=== PATIENT | male | born 1995 | race Caucasian/White ===

== ENCOUNTER 2017-10-29 16:54 | Emergency (ER) | payer BC, OTHER ==
[2017-10-29] MEDS ORDERED: Sodium Chloride 0.9% 10 ML Syringe FLUSH PRN (17:13)
[2017-10-29] MEDS ORDERED: Iopamidol 612 MG/ML 100 ML Bottle IVPUSH ONE (17:13)
--- NOTE | 2017-10-29 17:14 | EDM.PDOC ---
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 He states that he landed primarily on his right wrist, but also struck his head, although he remembers the entire event, and did not lose consciousness. He complains of pain primarily to his right wrist, but also to his right anterior superior iliac crest. He has a laceration above his right eyebrow, and a bump to the back of his head. He states that he also hyperextended his left third finger, but that it is not bothering him. He denies chest pain or dyspnea. He denies abdominal pain. The patient's last tetanus vaccination was around 2011. The patient does not have a PCP. Treatments [employer]: Reports: Splint(s) Right Hip Pain Score (Numeric/FACES): 1 Right Wrist Pain Score (Numeric/FACES): 5 - Related Data Allergies Allergy/AdvReac Type Severity Reaction Status Date / Time No Known Allergies Allergy Verified 10/29/17 18:42 Home Meds: Home Meds Acetaminophen/HYDROcodone [[place] 325-5 MG] 1 - 2 tab PO Q6H PRN #10 tablet 10/29 [Rx] Past Medical History - Past Health History Medical/Surgical History: Denies Medical/Surgical History Social & Family History - Tobacco Use Smoking Status *Q: Current Some Day Smoker - Alcohol Use Alcohol Use History: Yes Alcohol Use Frequency: Socially - Recreational Drug Use Recreational Drug Use: No - Living Situation & Occupation Living situation: Reports: Single, with Family Occupation: Employed ([employer]) Review of Systems - Review of Systems Review Of Systems: ROS reveals no pertinent complaints other than HPI. ED EXAM, GENERAL - Physical Exam Exam: See Below Exam Limited By: No Limitations General Appearance: Alert, WD/WN, No Apparent Distress Eye Exam: Bilateral Eye: EOMI, Normal Inspection, PERRL Ears: Normal External Exam, Normal Canal, Hearing Grossly Normal, Normal TMs Nose: Normal Inspection, Normal Mucosa, No Blood Throat/Mouth: Normal Inspection, Normal Lips, Normal Teeth, Normal Gums, Normal Oropharynx, Normal Voice, No Airway Compromise Head: Normocephalic, Other (2.0 linear laceration superior to the lateral aspect of the patient's right eyebrow. Mild to moderate associated swelling. There is a firm bump to the right occiput, which is mildly tender.) Neck: Normal Inspection, Supple, Non-Tender, Full Range of Motion Respiratory/Chest: No Respiratory Distress, Lungs Clear, Normal Breath Sounds, No Accessory Muscle Use, Chest Non-Tender Cardiovascular: Normal Peripheral Pulses, Regular Rate, Rhythm, No Edema, No Gallop, No JVD, No Murmur, No Rub Peripheral Pulses: 4+: Radial (L), Radial (R) GI/Abdominal: Normal Bowel Sounds, Soft, No Organomegaly, No Distention, No Abnormal Bruit, No Mass, Tender (Right lower quadrant only. The patient states that this is really his right anterior superior iliac crest, although he appears to be tender independent of that.) (Male) Exam: Deferred Rectal (Males) Exam: Deferred Back Exam: Normal Inspection, Full Range of Motion, NT Extremities: Normal Inspection, Normal Range of Motion, No Pedal Edema, Normal Capillary Refill, Other (Tenderness to the right anterior superior iliac crest. Mild abrasion to this area. Pelvis is stable. No tenderness to palpation of either lower extremity. There is tenderness to palpation over the distal right radius. Pain is not induced by compressing the mid radius and ulna. Pain is induced with passive lateral range of motion at the right wrist, but not with flexion/extension. Neurovascular status of the right upper extremity is intact.) Neurological: Alert, Oriented, CN II-XII Intact, Normal Cognition, No Motor/ Sensory Deficits Psychiatric: Normal Affect Skin Exam: Warm, Dry, Intact, Normal Color, No Rash ED TRAUMA PROCEDURES - Laceration/Wound Repair Right Face Lac/Wound Length In cm: 2.0 Appearance: Subcutaneous, Linear, Clean Anesthetic Type: Local Local Anesthesia - Lidocaine (Xylocaine): 1% with EPI (50:50 admixture) Local Anesthesia - Bupivicaine (Marcaine): 0.5% Plain (50:50 admixture) Local Anesthetic Volume: 2cc Skin Prep: Providone-Iodine (Betadine) Exploration/Debridement/Repair: Wound Explored, In a Bloodless Field, Explored to Base, No Foreign Material Found, Wound Margins Revised Closed With: Sutures Suture Size: 3-0 # of Sutures: 5 Suture Type: Nylon (Ethlon), Interrupted, Simple Sterile Dressing Applied: Nurse Tetanus Status Addressed: Yes Complications: No - Splinting Right Upper Extremity Pre-Procedure NV Status: Normal Post-Procedure NV Status: Normal Splint Material: Fiberglass Splint Design: Gutter Applied & Form Fitted By: Provider Provider Post-Splint Application NV Check: NV Status Normal, Good Position Complications: No Course - Vital Signs Last Recorded V/S: Last Vital Signs Temp 37.3 C 10/29/17 17:01 Pulse 80 10/29/17 17:01 Resp 18 10/29/17 17:01 BP 124/71 10/29/17 17:01 Pulse Ox 99 10/29/17 17:01 - Orders/Labs/Meds Orders: Active Orders 24 hr Category Date Time Status Abdomen Pelvis w Cont [CT] Stat Exams 10/29/17 17:28 Taken Wrist Comp Min 3V Rt [CR] Stat Exams 10/29/17 17:10 Taken Sodium Chloride 0.9% [Normal Saline] 1,000 ml Med 10/29/17 17:15 Active IV ASDIRECTED Sodium Chloride 0.9% [Saline Flush] Med 10/29/17 17:13 Active 10 ml FLUSH ONETIME PRN Medication Orders Sodium Chloride (Normal Saline) 1,000 mls @ 150 mls/hr IV ASDIRECTED MARISELA Last Admin: 10/29/17 17:41 Dose: 150 mls/hr Sodium Chloride (Saline Flush) 10 ml FLUSH ONETIME PRN PRN Reason: IV FLUSH Last Admin: 10/29/17 17:33 Dose: 10 ml Labs: Laboratory Tests 10/29/17 10/29/17 Range/Units 17:14 17:14 WBC 10.44 H (4.23-9.07) K/mm3 RBC 4.72 (4.63-6.08) M/mm3 Hgb 13.5 L (13.7-17.5) gm/L Hct 40.0 L (40.1-51.0) % MCV 84.7 (79.0-92.2) fl MCH 28.6 (25.7-32.2) pg MCHC 33.8 (32.2-35.5) g/dl RDW Std Deviation 39.4 (35.1-43.9) fL Plt Count 250 (163-337) K/mm3 MPV 10.1 (9.4-12.3) fl Neutrophils % (Manual) 68 H (40-60) % Band Neutrophils % 0 (0-10) % Lymphocytes % (Manual) 18 L (20-40) % Atypical Lymphs % 0 % Monocytes % (Manual) 12 H (2-10) % Eosinophils % (Manual) 1 (0.8-7.0) % Basophils % (Manual) 0 L (0.2-1.2) Myelocytes % 1 Platelet Estimate Adequate Plt Morphology Comment Normal RBC Morph Comment Normal Sodium 139 (136-145) mEq/L Potassium 3.4 L (3.5-5.1) mEq/L Chloride 104 (98-107) mEq/L Carbon Dioxide 24 (21-32) mEq/L Anion Gap 14.4 (5-15) BUN 20 H (7-18) mg/dL Creatinine 1.0 (0.7-1.3) mg/dL Est Cr Clr Drug Dosing 114.34 mL/min Estimated GFR (MDRD) > 60 (>60) mL/min BUN/Creatinine Ratio 20.0 H (14-18) Glucose 99 (74-106) mg/dL Calcium 8.7 (8.5-10.1) mg/dL Total Bilirubin 0.4 (0.2-1.0) mg/dL AST 64 H (15-37) U/L ALT 59 (16-63) U/L Alkaline Phosphatase 120 H (46-116) U/L Total Protein 7.2 (6.4-8.2) g/dl Albumin 4.2 (3.4-5.0) g/dl Globulin 3.0 gm/dL Albumin/Globulin Ratio 1.4 (1-2) Meds: Medications Generic Name Dose Route Start Last Admin Trade Name Freq PRN Reason Stop Dose Admin Sodium Chloride 1,000 mls @ 150 mls/hr 10/29/17 17:15 10/29/17 17:41 Normal Saline IV 150 mls/hr ASDIRECTED MARISELA Administration Sodium Chloride 10 ml 10/29/17 17:13 10/29/17 17:33 Saline Flush FLUSH 10 ml ONETIME PRN Administration IV FLUSH Discontinued Medications Generic Name Dose Route Start Last Admin Trade Name Matilde PRN Reason Stop Dose Admin Hydrocodone Bitart/Acetaminophen 2 tab 10/29/17 18:50 10/29/17 19:05 [place] 325-5 Mg PO 10/29/17 18:51 2 tab ONETIME ONE Administration Bupivacaine HCl 10 ml 10/29/17 18:27 10/29/17 18:37 Sensorcaine-Mpf 0.5% INJECT 10/29/17 18:28 10 ml ONETIME ONE Administration Iopamidol 100 ml 10/29/17 17:13 10/29/17 17:33 Isovue-300 (61%) IVPUSH 10/29/17 17:14 100 ml ONETIME ONE Administration Lidocaine/Epinephrine 20 ml 10/29/17 18:27 10/29/17 18:36 Xylocaine 1% With Epinephrine 1:100,000 INJECT 10/29/17 18:28 20 ml ONETIME ONE Administration - Re-Assessments/Exams Free Text/Narrative Re-Assessment/Exam: 10/29/17 17:12 There is a 2 cm laceration superior to the lateral aspect of the patient's right eyebrow that will require suturing. There is a bump in the back of the patient's head that is slightly tender, but there was no loss of consciousness, and the patient is neurologically intact without a headache, therefore CT scan of the head is not indicated. The patient's right wrist is tender to movement, without visible abnormality. I have ordered a x-ray of the right wrist. The patient has tenderness not only to his right anterior superior iliac crest, but to the right lower quadrant of his abdomen, as well, therefore I have ordered a CT scan of his abdomen and pelvis with IV contrast. I ordered a CBC and CMP. I have ordered IV fluid. I offered pain medication, but the patient declined. 10/29/17 17:27 4-view radiographs of the right wrist appear to demonstrate a subtle fracture off the distal aspect of the right radius, by the growth plate. Formal read per the Radiologist pending. 10/29/17 17:57 CT of the abdomen and pelvis with IV contrast is read by [facility] as "No abdominal injuries. Additional findings as above." 10/29/17 18:27 I spoke to the patient's right upper extremity with a gutter splint extending from the MCPs to just above the elbow, in a thumbs up position with the elbow at 90. 10/29/17 18:49 The laceration above the patient's right eyebrow was sutured with 5 simple interrupted sutures, using 3-0 Ethilon. The patient tolerated the procedure well. The patient will be given 2 tablets of [place] here in the ED, primarily for pain to his right pelvis, not his right wrist, then be discharged home with a prescription for 10 tablets of [place], that he can take along with ibuprofen. I will refer him to Dr. Hernandez, although his supervisors indicating that he will need to follow-up with an Orthopedic Surgeon of their choosing. The sutures should be ready for removal by 11/06/2017, about the same time that he will be seeing the orthopedic surgeon, therefore the patient plans to ask them if they can remove the sutures. Departure - Departure Time of Disposition: 18:51 Disposition: Home, Self-Care 01 Condition: Good Clinical Impression: Distal radius fracture, right, Laceration of face, Contusion of pelvis - Discharge Information Prescriptions: Acetaminophen/HYDROcodone [[place] 325-5 MG] 1 - 2 tab PO Q6H PRN #10 tablet PRN Reason: Pain (Severe 7-10) Instructions: Laceration Care, Adult, Contusion, [id number] Referrals: PCP,None [Primary Care Provider] - Yaniv Hernandez MD [Physician] - Forms: ED Department Discharge, ED Return to Work/School Form Additional Instructions: You were seen in the emergency room after falling about 18 feet, through a rig floor, cutting your face, injuring your right wrist, and injuring your right pelvis. Workup in the ER included blood work, an x-ray of your right wrist, and a CT scan of your abdomen and pelvis. The CT scan of your abdomen and pelvis was unremarkable, however, the x-ray of your right wrist show that you have a fracture to your distal radius. Your right arm has been placed into a splint. The splint cannot get wet. Ice and elevate your right wrist as much as possible over the next 2 days, to help minimize swelling. Take [id number] ibuprofen, 2-3 tablets (400-600 mg) every 8 hours, with food, as needed for pain. Take one to 2 tablets of the opioid pain reliever [place] up to every 6 hours, as needed for pain not relieved by ibuprofen. If you take [place], do not drive or operate heavy machinery for 10 hours afterwards. [place] may cause constipation, so consider taking a stool softener. Follow-up with the Orthopedic Surgeon Dr. Hernandez, or your own Orthopedic Surgeon, on or about 11/06/2017. The cut above your right eyebrow was sutured with 5 sutures. Keep the wound clean with ordinary soap and water, pat dry, then apply a clean Band-Aid, daily , to help keep it clean. If the wound or Band-Aid should become dirty, we clean it, pat it dry, then reapply Band-Aid. The sutures should be ready for removal by 11/06/2017. This can be done at a walk-in clinic, by a nurse at your doctor's office - possibly a nurse at the Orthopedic Surgeon's office, or in an ER. Do not attempt to remove the sutures your self. If any other problems, please do not hesitate to return to the ER. - My Orders Last 24 Hours: My Active Orders 10/29/17 17:10 Wrist Comp Min 3V Rt [CR] Stat 10/29/17 17:13 Sodium Chloride 0.9% [Saline Flush] 10 ml FLUSH ONETIME PRN 10/29/17 17:15 Sodium Chloride 0.9% [Normal Saline] 1,000 ml IV ASDIRECTED 10/29/17 17:28 Abdomen Pelvis w Cont [CT] Stat - Assessment/Plan Last 24 Hours: My Active Orders 10/29/17 17:10 Wrist Comp Min 3V Rt [CR] Stat 10/29/17 17:13 Sodium Chloride 0.9% [Saline Flush] 10 ml FLUSH ONETIME PRN 10/29/17 17:15 Sodium Chloride 0.9% [Normal Saline] 1,000 ml IV ASDIRECTED 10/29/17 17:28 Abdomen Pelvis w Cont [CT] Stat
[2017-10-29] MEDS ORDERED: Sodium Chloride 0.9% 1,000 ML IV SCH (17:15)
[2017-10-29] MEDS ORDERED: Bupivacaine 0.5% 10 ML SDV INJECT ONE (18:27)
[2017-10-29] MEDS ORDERED: Lidocaine 1% with EPINEPHrine 1:100,000 20 ML MDV INJECT ONE (18:27)
[2017-10-29] MEDS ORDERED: Acetaminophen/HYDROcodone 325-5 MG Tab PO ONE (18:50)
--- NOTE | 2017-10-30 15:29 | CT ---
CT abdomen and pelvis Technique: Multiple axial sections were obtained from above the dome of the diaphragm inferiorly through the pubic symphysis. Intravenous contrast was utilized. No oral contrast has been given. Delayed images were obtained through the bladder. Comparison: No prior abdominal x-ray. Findings: Slight parenchymal density is noted within the medial right lung base. Findings may represent mild area of pulmonary contusion. Liver shows no focal parenchymal abnormality. Spleen appears within normal limits. Adrenal glands show no nodule. Pancreas is within normal limits. Gallbladder contains no calcified gallstones. Kidneys show symmetric contrast enhancement without abnormality. Aorta shows no aneurysmal dilatation. No retroperitoneal adenopathy or mesenteric abnormalities are seen. No pelvic mass or adenopathy is seen. Delayed images show contrast within the distal ureters and within the bladder. Soft tissue swelling is noted within the subcutaneous fat overlying the right iliac wing. Bone window settings were reviewed which show no acute osseous abnormality. Impression: 1. Subcutaneous soft tissue swelling overlying the right iliac wing. 2. Slight parenchymal density within the medial right lung base most likely representing lung contusion. 3. Nothing acute is seen on CT study of the abdomen and pelvis. Diagnostic code #3 Agree with preliminary report issued by [employer] ([facility] preliminary report dictated on 10/29/17, 6:47 PM Central Time)
--- NOTE | 2017-10-30 15:29 | CR ---
Right wrist: Four views of the right wrist were obtained. Comparison: No prior wrist exam. Small opacities are seen around the wrist and distal forearm are presumably outside the patient on the skin. Please correlate. Joint spaces are preserved. Slightly impacted fracture noted within the distal radial metadiaphysis. Additional vertical fracture line is noted along the ulnar side of the distal radius. No additional bony abnormality is seen. Soft tissue swelling is noted. Impression: 1. Slightly impacted fracture suspected within the distal radial metaphysis. Additional vertical fracture line along the ulnar side of the distal radius. 2. Soft tissue swelling. 3. Small opacities presumably on the skin. Diagnostic code #3
== END 2017-10-29 19:16 | disposition home or self-care (01) ==
LOC: JD.ED 16:54
DX: S52.501A Unspecified fracture of the lower end of right radius, initial encounter for closed fracture (principal); S01.81XA Laceration without foreign body of other part of head, initial encounter; S30.0XXA Contusion of lower back and pelvis, initial encounter; F17.200 Nicotine dependence, unspecified, uncomplicated; W17.89XA Other fall from one level to another, initial encounter
CPT/HCPCS: 12011; 29125; 36415; 73110; 74177; 80053; 85007; 85027; 96360; 99285; A9270; J7040; J7050; Q9967; 99284-25